=== PATIENT | female | born 1985 | race Two or more races ===

== ENCOUNTER 2021-11-26 21:27 | Emergency (ER) | payer OTHER ==
[~2021-11-26] VITALS: Ht 149.9 cm; Wt 72.6 kg
[2021-11-27] MEDS ORDERED: TAMS0.4C PO (06:02)
[2021-11-27] MEDS ORDERED: CEPHALEXIN500 MG PO (06:02)
[2021-11-27] MEDS ORDERED: KETO10TA2 PO (06:02)
== END 2021-11-27 06:12 ==
LOC: ER 21:27
DX: N23 Unspecified renal colic (principal); N13.2 Hydronephrosis with renal and ureteral calculous obstruction; Z87.442 Personal history of urinary calculi